=== PATIENT | female | born 1970 | race Two or more races ===

== ENCOUNTER 2023-08-02 08:03 | Day surgery (SDC) | payer OTHER ==
[~2023-08-02 08:03] MED LIST: SYNTHROID; WELLBUTRIN SR150 MG PO
[2023-08-02] MEDS ORDERED: CEFAZOLIN SODIUM 1,000 MG VIAL ONE (08:53)
[2023-08-02] MEDS ORDERED: POVIDONE-IODINE 118 ML BOTT TOP ONE (10:38)
[2023-08-02] MEDS ORDERED: CEFAZOLIN SODIUM 1,000 MG VIAL IV SCH (11:15)
[2023-08-02] MEDS ORDERED: POVIDONE-IODINE 118 ML BOTT TOP SCH (11:15)
[2023-08-02] MEDS ORDERED: PROMETHAZINE HCL 50 MG/ML AMPUL IM ONE (11:30)
[2023-08-02] MEDS ORDERED: MORPHINE SULFATE 4 MG/ML VIAL IV PRN (11:30)
== END 2023-08-02 15:10 | disposition home or self-care (01) ==
LOC: CIR.AMB 08:03 → U 08:03 → CIR.AMB 15:10
PROVIDERS: ATTEND Obstetrics & Gynecology
DX: N87.0 Mild cervical dysplasia (principal)